=== PATIENT | male | born 1995 | race Caucasian/White ===

== ENCOUNTER 2017-01-25 03:27 | Emergency (ER) | payer BC ==
[~2017-01-25] VITALS: Ht 180.3 cm; Wt 86.0 kg
[2017-01-25 03:34] VITALS: TEMP 36.6; Ht 180.3 cm; Wt 86.0 kg
--- NOTE | 2017-01-25 04:03 | EMERGENCY ROOM VISIT NOTE ---
History Report prepared by Jessica: Jay Bear Under the Supervision of: Dr. Isaias Rubio M.D. First contact with patient: 03:54 Chief Complaint: ALCOHOL OVERDOSE Stated Complaint: ALCOHOL Nursing Triage Summary: patient was found sitting in hallway in dorm on campus sleeping and admits to drinking alcohol before passing out. patient brought in by EMS. states he drank 12 beers. History of Present Illness The patient is a 23 year old male who presents to the Emergency Room with complaints of an alcohol overdose that occurred [employer]. This HPI is limited secondary to intoxication. The patient denies drinking any alcohol and denies any trauma. He denies any health issues or diabetes. He also denies any vomiting. 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 Past Medical & Surgical Unable to obtain secondary to alcohol intoxication Family History Unable to obtain secondary to alcohol intoxication. Social History Smoking Status: Unknown if Ever Smoked Smokeless Tobacco Use: Unknown Alcohol Use: occasionally Marital Status: single Social History: Unable to obtain full history secondary to intoxication Current/Historical Medications Unable to Obtain Active Prescriptions or Reported Meds Physical Exam Vital Signs Date Time Temp Pulse Resp B/P Pulse Ox O2 Delivery O2 Flow Rate FiO2 01/25/17 09:17 102 20 123/64 98 01/25/17 09:00 102 20 123/64 98 Room Air 01/25/17 07:00 80 20 98/59 97 Room Air 01/25/17 05:14 79 18 110/64 95 Room Air 01/25/17 03:37 101 01/25/17 03:34 36.6 95 20 126/42 100 Room Air Physical Exam GENERAL: Patient is in no acute distress. HEENT: No acute trauma, normocephalic atraumatic, mucous membranes moist, no nasal congestion, no scleral icterus. Pupils equal and reactive to light. No obvious head trauma. NECK: No stridor, no adenopathy, no meningismus, trachea is midline. LUNGS: Clear to auscultation bilaterally, no wheeze, no rhonchi, breath sounds equal. HEART: Without murmurs gallops or rubs, regular rate and rhythm. ABDOMEN: Soft, nontender, bowel sounds positive, no hernias, no peritonitis. EXTREMITIES: No cyanosis or edema, full range of motion of all the joints without pain or difficulty, no signs for acute trauma. NEUROLOGIC: Moderately to significantly intoxicated with alcohol, no acute motor or sensory deficits, no focal weakness. SKIN: No rash, no jaundice, no diaphoresis. Medical Decision & Procedures Laboratory Results 01/25/17 04:13 Test 01/25/17 04:13 Anion Gap 5.0 mmol/L (3-11) Est Creatinine Clear Calc Drug Dose 110.2 ml/min Estimated GFR () 108.3 Estimated GFR (Non- 93.5 BUN/Creatinine Ratio 10.6 (10-20) Calcium Level 8.6 mg/dl (8.5-10.1) Ethyl Alcohol mg/dL 266.0 mg/dl (0-3) Laboratory results reviewed by me. ED Course 0354: The patient was evaluated in room A4A. A complete history and physical exam was performed. 0633: The patient is still asleep. Medical Decision Differential diagnosis includes but is not limited to drug and alcohol abuse, head trauma, dehydration, and vomiting. The patient presents for an alcohol overdose. On exam, there was no obvious trauma and there was no report of trauma. No evidence for recent vomiting. The patient did seem moderately to significantly intoxicated with alcohol. Renal panel testing did not show renal failure or significant electrolyte abnormality. Alcohol level was 266, consistent with his presentation. The patient has slept most of the evening. As his alcohol clears and he becomes more awake and appropriate, he will be reassessed and then eventually discharged home. The patient will be encouraged not to use alcohol in excess. His presentation is consistent with an acute alcohol overdose. Impression Primary Impression: Alcohol use with intoxication Additional Impression: Alcohol overdose Scribe Attestation The scribe's documentation has been prepared under my direction and personally reviewed by me in its entirety. I confirm that the note above accurately reflects all work, treatment, procedures, and medical decision making performed by me. Departure Information Dispostion Still a Patient Prescriptions Unable to Obtain Active Prescriptions or Reported Meds Patient Instructions My [facility] Health Problem Qualifiers
[2017-01-25 04:42] LABS: BUN/CREATININE RATIO 10.6 (10-20); CALCIUM 8.6 mg/dl (8.5-10.1); CREATININE 1.1 mg/dl (0.60-1.40)
[2017-01-25 09:17] VITALS: BP 123/64; PULSE 102; O2SAT 98
== END 2017-01-25 09:17 | disposition home or self-care (01) ==
LOC: C.EDA 03:31 → EDBD 03:31 → C.EDA 09:17
DX: T51.91XA Toxic effect of unspecified alcohol, accidental (unintentional), initial encounter (principal); Y90.8 Blood alcohol level of 240 mg/100 ml or more